=== PATIENT | female | born 1995 | race African-American/Black ===

== ENCOUNTER 2024-06-27 22:01 | Emergency (ER) | payer SELFPAY ==
[~2024-06-27] VITALS: Ht 165.1 cm; Wt 63.0 kg
[2024-06-27 22:05] VITALS: BP 106/55; PULSE 60; RESP 16; TEMP 36.6; O2SAT 100
[2024-06-27 22:17] VITALS: O2SAT 99
[2024-06-27] MEDS ORDERED: ACET-2708 MT (23:32)
== END 2024-06-28 00:46 | disposition home or self-care (01) ==
LOC: ER 22:01
DX: M25.561 Pain in right knee (principal)
CPT/HCPCS: 73562; 99283